=== PATIENT | male | born 1985 | race African-American/Black ===

== ENCOUNTER 2018-09-20 17:59 | Emergency (ER) | payer OTHER | END 2018-09-20 18:59 | disposition home or self-care (01) | LOC: NAV ERS 17:59 | DX: H61.22 Impacted cerumen, left ear (principal); H60.92 Unspecified otitis externa, left ear | CPT/HCPCS: 69210 ==

== ENCOUNTER 2020-02-06 15:14 | Emergency (ER) | payer OTHER ==
[~2020-02-06 15:14] MED LIST: Iopamidol 370 76% 100 ML VIAL ONE
[2020-02-06 15:56] LABS: #Basophils 0.3 thou/uL (0.0-0.2); #Lymphocytes 1.1 thou/uL (1.20-3.40); #Neutrophils 14.3 thou/uL (1.40-6.50); %Basophils 1.6 % (0.0-1.0); %Eosinophils 0.1 % (0.0-10.0); %Lymphocytes 6.1 % (21.0-51.0); %Monocytes 11.3 % (0.0-10.0); %Neutrophils 80.9 % (42.0-75.0); Hemoglobin 13.5 g/dL (14.0-18.0); Mean Corpuscular HGB CONC 33.5 g/dL (32.0-36.0); Mean Corpuscular Hemoglobin 28.6 pg (27.0-31.0); Mean Corpuscular Volume 85.4 fL (78.0-98.0); Mean Platelet Volume 8.2 fL (7.4-10.4); Platelet Count 213 thou/uL (130-400); RBC Distribution Width 12.1 % (11.5-14.5); Red Blood Cell (RBC) Count 4.74 mill/uL (4.70-6.10); White Blood Cell (WBC) Count 17.7 thou/uL (4.8-10.8)
[2020-02-06] MEDS ORDERED: Sodium Chloride 0.9% 100 ML ONE ×2 (16:05→16:51)
[2020-02-06] MEDS ORDERED: cefTRIAXone\\ROCEPHIN 1 GM VIAL ONE (16:05)
[2020-02-06 16:10] LABS: ALT (SGPT) 15 U/L (8-55); AST (SGOT) 20 U/L (5-34); Albumin 3.5 g/dL (3.5-5.0); Alkaline Phosphatase 63 U/L (40-110); Anion Gap 11 mmol/L (10-20); BUN (Urea Nitrogen) 10 mg/dL (8.9-20.6); CK (CPK) 64 U/L (30-200); Calc. Creatinine Clearance 0 mL/min (70-130); Calcium 8.3 mg/dL (7.8-10.44); Carbon Dioxide 26 mmol/L (22-29); Chloride 104 mmol/L (98-107); Glucose 113 mg/dL (70-105); Potassium 4.3 mmol/L (3.5-5.1); Protein, Total 6.5 g/dL (6.0-8.3); Sodium 137 mmol/L (136-145)
[2020-02-06] MEDS ORDERED: Acetaminophen 500 MG TAB ONE (16:15)
--- NOTE | 2020-02-06 16:49 | CT ---
EXAM: CT Upper Ext Lt W WO PROVIDED CLINICAL HISTORY: Left upper extremity swelling with puncture wound from small object. Patient has difficulty moving fi ngers and has left forearm tenderness. COMPARISON: None FINDINGS: Diffuse subcutaneous soft tissue swelling is seen about the forearm. No defined fluid collection is s een to suggest an abscess. No radiopaque foreign body is identified. There is normal enhancement of the visualized vascular structures. No fracture is seen. There is no osseous destruction identified. IMPRESSION: Diffuse subcutaneous soft tissue swelling involving the left forearm. No defined fluid collection is seen to suggest an abscess.
[2020-02-06] MEDS ORDERED: Sodium Chloride 0.9% 250 ML 250 ML ONE (16:52)
== END 2020-02-06 18:24 | disposition home or self-care (01) ==
LOC: NAV ERS 15:14
DX: S51.832A Puncture wound without foreign body of left forearm, initial encounter (principal); L03.114 Cellulitis of left upper limb; D72.829 Elevated white blood cell count, unspecified; Y04.0XXA Assault by unarmed brawl or fight, initial encounter
CPT/HCPCS: 80053; 82550; 83605; 85025; 87040; 87070; 87077; 87205; 96365; 96367; J0696; J3370; J3490; J7050; Q9967

== ENCOUNTER 2020-10-04 13:28 | Emergency (ER) | payer OTHER | END 2020-10-04 13:46 | disposition home or self-care (01) | LOC: NAV ERS 13:28 | DX: Z20.2 Contact with and (suspected) exposure to infections with a predominantly sexual mode of transmission (principal) | CPT/HCPCS: 99281 ==

== ENCOUNTER 2020-10-26 09:03 | Emergency (ER) | payer OTHER ==
[2020-10-27 02:13] LABS: SARS-CoV-2 PCR by NAA Not Detected (NotDetected)
== END 2020-10-26 11:27 | disposition home or self-care (01) ==
LOC: NAV ERS 09:03
DX: J02.9 Acute pharyngitis, unspecified (principal); Z20.822 Contact with and (suspected) exposure to COVID-19
CPT/HCPCS: 87081; 87430; 99283; U0003; U0005

== ENCOUNTER 2020-10-28 19:35 | Emergency (ER) | payer OTHER | END 2020-10-28 20:30 | disposition home or self-care (01) | LOC: NAV ERS 19:35 | DX: S01.01XD Laceration without foreign body of scalp, subsequent encounter (principal); S41.012D Laceration without foreign body of left shoulder, subsequent encounter; S81.011D Laceration without foreign body, right knee, subsequent encounter; S61.512D Laceration without foreign body of left wrist, subsequent encounter; S01.312D Laceration without foreign body of left ear, subsequent encounter; S01.81XD Laceration without foreign body of other part of head, subsequent encounter; V43.53XD Car driver injured in collision with pick-up truck in traffic accident, subsequent encounter ==